=== PATIENT | female | born 1995 | race Two or more races ===

== ENCOUNTER 2024-07-10 09:11 | Outpatient (CLI) | payer OTHER ==
[2024-07-11] MEDS ORDERED: PRENATAL TABLE1 EAC1 PO (02:47)
== END 2024-07-10 09:48 | disposition home or self-care (01) ==
LOC: NST 09:11
PROVIDERS: ATTEND Obstetrics & Gynecology Maternal & Fetal Medicine
DX: Z34.83 Encounter for supervision of other normal pregnancy, third trimester (principal)

== ENCOUNTER 2024-07-10 10:00 | Inpatient (IN) | payer OTHER ==
[~2024-07-10] VITALS: Ht 162.6 cm; Wt 75.3 kg
[2024-07-10 19:50] VITALS: BP 136/69
[2024-07-10] MEDS ORDERED: RINGERS SOLUTION,LACTATED 1,000 ML IV SCH (20:30)
[2024-07-10] MEDS ORDERED: MORPHINE SULFATE 4 MG/ML VIAL IV STA (21:47)
[2024-07-10 21:51] LABS: HEMATOCRIT 32.9 % (36.0-45.00); HEMOGLOBIN 10.7 g/dL (12.0-15.00); MEAN CELL VOLUME 76.4 fL (80.00-100.00); MEAN CORPUSCULAR HEMOGLOBIN 24.9 pg (27.00-32.0); MEAN CORPUSCULAR HGB CONC 32.6 g/dl (32.0-36.0); PLATELET COUNT 271 K/uL (150-450); RED BLOOD COUNT 4.31 M/uL (4.00-6.00); RED CELL DISTRIBUTION WIDTH 14.4 % (11.5-14.5)
[2024-07-10 21:58] LABS: INR 0.94; PARTIAL THROMBOPLASTIN TIME 24.6 SECONDS (22.0-34.0); PROTHROMBIN TIME 10.3 SECONDS (9.0-11.5)
[2024-07-10 22:04] LABS: ALBUMIN 2.8 gm/dL (3.4-5.0); BILIRUBIN TOTAL 0.51 mg/dL (0.3-1.2); CALCIUM 9.1 mg/dL (8.5-10.1); CREATININE SERUM 0.47 mg/dL (0.55-1.02); GFR 158.95; GLOBULINA 3.4 G/DL (2.4-3.5); POTASSIUM 4.03 mEq/L (3.5-5.1); TOTAL PROTEIN 6.2 gm/dL (6.4-8.2)
[2024-07-11] VITALS (13 sets, daily range): BP systolic 104–135; BP diastolic 45–73
[2024-07-11] MEDS ORDERED: LIDOCAINE HCL 1% 10ML VIAL IJ ONE
[2024-07-11] MEDS ORDERED: ERYTHROMYCIN BASE OPHT 1GM EACH TUBE OP ONE
[2024-07-11] MEDS ORDERED: CHLORHEXIDINE GLUCONATE 120 ML BOTTLE TOP ONE
[2024-07-11] MEDS ORDERED: NALOXONE HCL 0.4 MG/ML AMPUL IV ONE
[2024-07-11] MEDS ORDERED: OXYTOCIN 1,000 ML IV SCH (00:45)
[2024-07-11] MEDS ORDERED: IBUprofen 400 MG TABLET PO PRN (00:45)
[2024-07-11] MEDS ORDERED: OxyCODONE HCL/APAP UD (PERCOCET) PO PRN (00:45)
[2024-07-11] MEDS ORDERED: PRENATAL TABLE1 EAC1 PO (02:47)
[2024-07-11] MEDS ORDERED: OXYTOCIN 500 ML IV SCH (03:45)
[2024-07-12 01:14] VITALS: BP 106/60
[2024-07-12 08:23] VITALS: BP 112/70
== END 2024-07-12 11:31 | disposition home or self-care (01) | DRG 807 ==
LOC: EDUNIT# 10:00 → OB/GYN 19:04 → LDR 19:04 → OB/GYN 07-11 03:15
PROVIDERS: ADMIT Obstetrics & Gynecology; ATTEND Obstetrics & Gynecology
PROC: 10E0XZZ Delivery of Products of Conception, External Approach (ICD-10-PCS; principal; 2024-07-10)
PROC: 0W8NXZZ Division of Female Perineum, External Approach (ICD-10-PCS; 2024-07-10)
PROC: 4A1HXCZ Monitoring of Products of Conception, Cardiac Rate, External Approach (ICD-10-PCS; 2024-07-10)
DX: O80 Encounter for full-term uncomplicated delivery (principal); Z37.0 Single live birth; Z3A.38 38 weeks gestation of pregnancy; Z20.822 Contact with and (suspected) exposure to COVID-19